=== PATIENT | female | born 1960 | race Caucasian/White ===

== ENCOUNTER 2018-08-13 20:05 | Emergency (ER) | payer BC ==
[~2018-08-13] VITALS: Ht 565.3 cm; Wt 52.1 kg
[2018-08-13] MEDS ORDERED: ketorolac trometh. 30mg/ml inj. IV ONE (21:30)
[2018-08-13] MEDS ORDERED: normal saline 1000ML IV soln IVB ONE (21:30)
[2018-08-13] MEDS ORDERED: ondansetron/PF 4mg/2ml inj IV ONE (21:30)
[2018-08-13 21:42] LABS: BASOPHILS % (AUTO) 0.3 % (0-1); EOSINOPHILS # (AUTO) 0.3 X10'3 (0-0.9); EOSINOPHILS % (AUTO) 2.1 % (0-6); HEMATOCRIT 41.4 % (35.0-45.0); LYMPHOCYTES # (AUTO) 1.6 X10'3 (1.1-4.8); LYMPHOCYTES % (AUTO) 12.3 % (21-51); MEAN CORPUSCULAR HEMOGLOBIN 31.4 PG (27.0-31.0); MEAN CORPUSCULAR HGB CONC 33.9 % (33.0-36.5); MEAN CORPUSCULAR VOLUME 92.7 FL (78-98); MEAN PLATELET VOLUME 7.5 FL (7.4-10.4); MONOCYTES # (AUTO) 0.5 X10'3 (0-0.9); MONOCYTES % (AUTO) 3.5 % (2-12); NEUTROPHILS # (AUTO) 10.9 X10'3 (1.8-7.7); NEUTROPHILS % (AUTO) 81.8 % (42-75); PLATELET COUNT 296 X10'3 (140-440); RED BLOOD COUNT 4.46 X10'6 (4.20-5.60); WHITE BLOOD COUNT 13.4 X10'3 (4.5-11.0)
[2018-08-13 22:02] LABS: ALANINE AMINOTRANSFERASE 20 U/L (12-78); ALBUMIN 4.1 G/DL (3.4-5.0); ALBUMIN/GLOBULIN RATIO 1.3 (1.1-1.5); ALKALINE PHOSPHATASE 80 IU/L (46-116); ANION GAP 9 (8-16); ASPARTATE AMINO TRANSFERASE 23 U/L (10-37); BILIRUBIN,TOTAL 0.3 MG/DL (0.1-1.0); BLOOD UREA NITROGEN 20 MG/DL (7-18); BUN/CREATININE RATIO 22.2 (6.6-38.0); CHLORIDE 102 MMOL/L (99-107); GLUCOSE 136 MG/DL (70-104); LIPASE 114 U/L (73-393); POTASSIUM 3.7 MMOL/L (3.5-5.1); SODIUM 140 MMOL/L (135-145); TOTAL PROTEIN 7.3 G/DL (6.4-8.2); eGFR 64 ML/MIN
[2018-08-13 23:46] VITALS: BP 99/53
[2018-08-14] MEDS ORDERED: HYDR-3965 PO (00:50)
[2018-08-14] MEDS ORDERED: CIPR-230 PO (00:50)
[2018-08-14] MEDS ORDERED: METR500T4 PO (00:50)
[2018-08-14 00:56] LABS: URINE HCG NEGATIVE (NEG)
[2018-08-14 01:08] LABS: CLARITY,URINE CLEAR (Clear); COLOR,URINE YELLOW (Yellow); GLUCOSE, URINE NEGATIVE (Neg); KETONES,URINE 15 mg/dl (Neg); LEUKOCYTE ESTERASE ,URINE NEGATIVE (Neg); NITRITES, URINE NEGATIVE (Neg); OCCULT BLOOD,URINE NEGATIVE (Neg); PROTEIN,URINE NEGATIVE (Neg)
[2018-08-14 01:09] LABS: UA COLLECTION TYPE CLN CATCH MIDSTREAM
== END 2018-08-14 01:06 | disposition home or self-care (01) ==
LOC: ER 20:06
DX: K52.9 Noninfective gastroenteritis and colitis, unspecified (principal); Z88.0 Allergy status to penicillin; Z88.6 Allergy status to analgesic agent
CPT/HCPCS: 36415; 74176; 80053; 81003; 81025; 83690; 85025; 85610; 96361; 96374; 96375; 99285; J1885; J2405; J7030

== ENCOUNTER 2025-02-07 07:34 | Emergency (ER) | payer MEDICARE, BC ==
[~2025-02-07] VITALS: Ht 162.6 cm; Wt 53.4 kg
[2025-02-07 07:40] VITALS: BP 135/79; PULSE 104; RESP 18; O2SAT 94
[2025-02-07] MEDS ORDERED: PRED20TA PO (08:15)
[2025-02-07] MEDS ORDERED: ONDA-243 PO (08:16)
[2025-02-07 08:32] VITALS: TEMP 99.1
== END 2025-02-07 08:34 | disposition home or self-care (01) ==
LOC: ER 07:35
DX: J20.9 Acute bronchitis, unspecified (principal); Z88.0 Allergy status to penicillin; Z88.5 Allergy status to narcotic agent
CPT/HCPCS: 99283